=== PATIENT | female | born 1990 | race Caucasian/White ===

== ENCOUNTER 2016-08-08 22:52 | Emergency (ER) | payer MEDICAID ==
[~2016-08-08] VITALS: Ht 160 cm; Wt 50.3 kg
[2016-08-08 22:52] VITALS: BP 148/108; PULSE 99; RESP 18; TEMP 99; O2SAT 99
[~2016-08-08 22:52] MED LIST: ALBUAER3 INH
== END 2016-08-09 02:48 | disposition left against medical advice (07) ==
LOC: PHED 22:52
DX: R21 Rash and other nonspecific skin eruption (principal)
CPT/HCPCS: 99281

== ENCOUNTER 2017-11-20 23:32 | Emergency (ER) | payer MEDICAID, OTHER ==
[2017-11-20 23:55] VITALS: TEMP 98
[2017-11-21 00:19] VITALS: BP 130/83; PULSE 83; RESP 16; O2SAT 99
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
--- NOTE | 2017-11-21 01:38 | PD ---
Physical Exam Date Seen by Provider: Nov 21, 2017 Time Seen by Provider: 01:34 Narrative GENERAL: This is a well-nourished, well-developed patient, in no apparent distress. SKIN: No rashes, ecchymoses or lesions. Warm and dry. HEAD: Atraumatic. Normocephalic. EYES: PERRL, EOMI, no discharge or injection. No scleral icterus. EARS: Clear NOSE: Nasal turbinates appear normal. THROAT: Mucosa pink and moist. Airway patent. NECK: Trachea midline. supple, moves head freely. LUNGS: Clear to auscultation. CV: Regular in rhythm. ABDOMEN: Soft nontender. EXT: No clubbing cyanosis or edema. Data Data Last Documented VS Vital Signs Date Time Temp Pulse Resp B/P (MAP) Pulse Ox O2 Delivery O2 Flow Rate FiO2 11/21/17 00:19 83 16 130/83 (99) 99 Room Air 11/20/17 23:55 98.0 Orders Orders Soft Tissue Neck (11/21/17 ) Chest, Pa & Lat (11/21/17 ) Ed Discharge Order (11/21/17 01:33) [facility] Medical Record Reviewed: Yes Supervised Visit with LEROY: Yes Interpretation(s) Chest x-ray: No acute pulmonary process. No foreign body identified. Scoliosis. Soft tissue neck: Patient has 3 opaque foreign bodies in the neck consistent with needle foreign bodies. I have compared this to her x-ray from 2016. These are present on those images. I do not see any additional new foreign bodies. The appear to be in the same position without movement. Differential Diagnosis Differential diagnosis: Foreign body, abrasion, substance abuse, malingering Narrative Course The patient's x-ray do not show any additional foreign bodies. These have been present now since 2016. I do not believe that the patient emergently needs to have an evaluation for these foreign bodies. The patient can be medically cleared to go to custodial. Patient's counseled on substance abuse. Patient has requested ibuprofen for headache and body ache. She does admit to having some mild withdrawal symptoms. Patient was given 600 mg of ibuprofen p.o. The patient's been medically cleared to go to custodial. This is IV drug abuse, retained foreign body of the neck Diagnosis Primary Impression: IVDU (intravenous drug user) Additional Impression: Retained foreign body of neck Patient Instructions: General Instructions Additional Instruction: Rest. Increase fluids. Avoid alcohol. Avoid illegal substances. Follow-up with [facility] for detox. Follow-up with a vascular surgeon for foreign body removal. Do not operate a car or any heavy machinery under the influence of alcohol or drugs. Follow-up with a medical doctor this week. Return to the ER for emergencies Med/Other Pt SpecificInfo: No Meds Exist/No RX given, Wound Care Disposition: [address] LAW ENFORCEMNT Condition: Stable Guru Carvalho Nov 21, 2017 01:38
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
[2017-11-21] MEDS ORDERED: IBUPROFEN 600 MG TAB PO ONE (01:45)
== END 2017-11-21 01:50 ==
LOC: NEPD 23:32
DX: S11.94XA Puncture wound with foreign body of unspecified part of neck, initial encounter (principal); J45.909 Unspecified asthma, uncomplicated; D64.9 Anemia, unspecified; F11.10 Opioid abuse, uncomplicated; W45.8XXA Other foreign body or object entering through skin, initial encounter; Z18.10 Retained metal fragments, unspecified
CPT/HCPCS: 70360; 71046; 99283